=== PATIENT | male | born 1955 | race Caucasian/White ===

== ENCOUNTER 2020-05-16 16:13 | Emergency (ER) | payer MEDICARE, OTHER ==
[2020-05-16 17:06] LABS: HEMOGLOBIN 14.7 gm/dl (14.0-17.5); RED BLOOD COUNT 4.29 M/UL (4.20-5.50); WHITE BLOOD COUNT 10.6 K/UL (4.5-11.0)
[2020-05-16 18:02] LABS: BUN/CREATININE RATIO 7 (0-10)
== END 2020-05-16 20:00 | disposition home or self-care (01) ==
LOC: ER1 16:13
PROVIDERS: Preventive Medicine Occupational Medicine
DX: S00.81XA Abrasion of other part of head, initial encounter (principal); F10.129 Alcohol abuse with intoxication, unspecified; Y90.8 Blood alcohol level of 240 mg/100 ml or more; F17.210 Nicotine dependence, cigarettes, uncomplicated; Z20.822 Contact with and (suspected) exposure to COVID-19; W01.10XA Fall on same level from slipping, tripping and stumbling with subsequent striking against unspecified object, initial encounter; Y92.009 Unspecified place in unspecified non-institutional (private) residence as the place of occurrence of the external cause
CPT/HCPCS: 0240U; 36415; 36600; 70450; 71045; 80053; 80307; 82009; 82140; 82550; 82553; 82803; 83690; 83874; 83880; 84484; 85025; 85610; 86140; 99284; G0480; J2405

== ENCOUNTER → 2021-12-17 | Outpatient (CLI) | payer MEDICARE, OTHER | LOC: KOH-I 12:52 | DX: F17.210 Nicotine dependence, cigarettes, uncomplicated (principal) | CPT/HCPCS: 71271 ==